=== PATIENT | female | born 1960 | race Caucasian/White ===

== ENCOUNTER → 2019-10-13 | Outpatient (REF) | payer OTHER | LOC: M LAB REF 15:38 | PROVIDERS: ATTEND Physician Assistant | DX: Z20.828 Contact with and (suspected) exposure to other viral communicable diseases (principal); Z11.59 Encounter for screening for other viral diseases ==

== ENCOUNTER → 2019-11-20 | Outpatient (REF) | payer OTHER | LOC: M LAB REF 11:30 | PROVIDERS: ATTEND Physician Assistant Medical | DX: Z03.818 Encounter for observation for suspected exposure to other biological agents ruled out (principal); Z11.59 Encounter for screening for other viral diseases ==

== ENCOUNTER → 2021-01-22 | Outpatient (CLI) | payer OTHER ==
--- NOTE | 2021-01-22 13:06 | DEXAMM ---
INDICATION: OTH DISORDER BONE DENSITY AND STRUCTURE UNSPEC. COMPARISON: 10/08/2017. TECHNIQUE: Bone density was measured using dual-energy x-ray absorptiometry (DEXA). FINDINGS: AP SPINE L1-L4 BMD 1.153 g/cm2 Young Adult T-Score -0.3 Age Matched Z-Score 0.7. LT FEMUR, TOTAL BMD 0.881 g/cm2 Young Adult T-Score -1.0 Age Matched Z-Score -0.2. LT NECK BMD 0.885 g/cm2 Young Adult T-Score -1.1 Age Matched Z-Score 0.1. RT FEMUR, TOTAL BMD 0.923 g/cm2 Young Adult T-Score -0.7 Age Matched Z-Score 0.2. RT NECK BMD 0.917 g/cm2 Young Adult T-Score -0.9 Age Matched Z-Score 0.3. IMPRESSION: There is normal bone density of the spine. There is low bone density of the left hip. There is normal bone density of the right hip. The density of the spine has decreased 9.4% since the initial exam on 10/08/2017. The density of the left hip has decreased 5.5% since initial exam on 10/08/2017. The density of the right hip has decreased 5.9% since the initial exam on 10/08/2017. FOLLOW-UP: Recommendation for the next bone density exam: 2 years. <Electronically signed by Kenny Pardo > 01/22/21 2123
== END ==
LOC: M WHC 07:53
PROVIDERS: ATTEND Internal Medicine
DX: M85.80 Other specified disorders of bone density and structure, unspecified site (principal)

== ENCOUNTER → 2021-07-30 | Outpatient (CLI) | payer OTHER | LOC: M EKG 16:13 | PROVIDERS: ATTEND Internal Medicine | DX: R00.2 Palpitations (principal) ==

== ENCOUNTER 2022-01-26 07:19 | Day surgery (SDC) | payer OTHER ==
[~2022-01-26] VITALS: Ht 175.3 cm; Wt 78.5 kg
[~2022-01-26 07:19] MED LIST: ATEN25TA PO; ATOR1TAB19 PO; CALC1TAB42 PO; D3 H10002 PO; NS 1,000 ML IV ONE; OMEP-173 PO
[2022-01-26] MEDS ORDERED: propofoL 200 MG/20 ML VIAL As Ordered ONE (08:26)
[2022-01-26] MEDS ORDERED: LIDOCAINE 2% 100MG/5ML SDV (FOR ANES.) As Ordered ONE (08:26)
[2022-01-26] MEDS ORDERED: GLYCOPYRROLATE INJ 0.2 MG/ML 2 ML VIAL As Ordered ONE (08:36)
[2022-01-26 09:00] VITALS: BP 132/67
== END 2022-01-26 09:21 | disposition home or self-care (01) ==
LOC: M OPP 07:19
PROVIDERS: ATTEND Internal Medicine Gastroenterology
DX: Z12.11 Encounter for screening for malignant neoplasm of colon (principal); K64.0 First degree hemorrhoids; K57.30 Diverticulosis of large intestine without perforation or abscess without bleeding; Z79.02 Long term (current) use of antithrombotics/antiplatelets; I48.91 Unspecified atrial fibrillation

== ENCOUNTER → 2022-08-18 | Outpatient (CLI) | payer OTHER ==
[~2022-08-18] MED LIST changes: -NS 1,000 ML IV ONE
== END ==
LOC: M RAD 18:35
PROVIDERS: ATTEND Physician Assistant Medical
DX: M79.672 Pain in left foot (principal)